=== PATIENT | female | born 1965 | race Hispanic/Latino ===

== ENCOUNTER 2020-11-09 16:53 | Emergency (ER) | payer OTHER, SELFPAY ==
[2020-11-09] VITALS (11 sets, daily range): BP systolic 114–148; BP diastolic 69–74; PULSE 68–93; RESP 13–19; TEMP 37.1; O2SAT 99–100
--- NOTE | ~2020-11-09 | XR_ITS ---
EXAMINATION: XR chest 1V portable INDICATION: Fever, COVID 19 positive TECHNIQUE: Portable AP chest at 1842 hours COMPARISON: None available FINDINGS: Patchy bilateral airspace opacities are present. There is no pleural effusion or pneumothor ax. The cardiomediastinal silhouette is normal. The visualized osseous structures are unremarkable. IMPRESSION: 1. Patchy bilateral airspace opacities, likely pneumonia. Reviewed, dictated and finalized at location A.
--- NOTE | 2020-11-09 18:26 | PC.NURSE ---
Per lead electrical engineer, unable to get information from pt/triage pt at this time, waiting for player services representative currently in use by another EDP.
[2020-11-09 18:58] LABS: Hematocrit 39.7 % (37.0-47.0); Hemoglobin 13.2 g/dL (12.0-15.0); Immature Granulocyte Absolute 0.01 K/mm3 (0.00-0.031); Immature Granulocyte Percent A 0.3 % (0-0.5); Lymphocytes Absolute Auto 0.98 K/mm3 (0.9-3.2); Lymphocytes Percent Auto 29.3 % (18.3-44.2); Mean Corpuscular HGB Conc 33.2 g/dl (32-36); Mean Corpuscular Hemoglobin 31.6 pg (26-34); Monocytes Absolute Auto 0.2 K/mm3 (0.1-0.6); Monocytes Percent Auto 4.5 % (2.6-8.5); Neutrophils Absolute Auto 2.2 K/mm3 (1.3-6.7); Neutrophils Percent Auto 65.9 % (45.5-73.1); Platelet Count Result 151 k/mm3 (150-375); Red Blood Count 4.18 M/mm3 (4.2-5.4); Red Cell Distribution Width 12.1 % (11.5-14.5); White Blood Count 3.4 K/mm3 (4.5-10.0)
[2020-11-09 19:03] LABS: Add Urine Microscopic? YES; Appearance Urine Cloudy (Clear); Bacteria Urine Trace /hpf; Bilirubin Urine Negative (Negative); Blood Urine Negative (Negative); Color Urine Amber (Yellow); Glucose Urine UA Negative (Negative); Ketones Urine 1+ mg/dL (Negative); Leukocyte Esterase Ur Trace LEU/UL (Negative); Mucus Urine Heavy /lpf; Nitrate Urine Negative (Negative); Protein Urine 2+ mg/dL (Negative); Squamous Epithelial Cell Urine Many /hpf (Few)
[2020-11-09 19:10] LABS: D Dimer 0.44 ug/mL (<0.48)
[2020-11-09 19:12] LABS: Anion Gap 6 mmol/L (8-16); Blood Urea Nitrogen 17 mg/dL (7-17); Calcium 8.4 mg/dL (8.4-10.2); Carbon Dioxide 28 mmol/L (22-30); Chloride 105 mmol/L (98-107); Estimated CRCL calculation 78 ml/min; Estimated Glomerular Filt Rate > 60; Glucose 122 mg/dL (65-105); Lactate Dehydrogenase 533 U/L (313-618); Potassium 4.2 mmol/L (3.4-5.0); Sodium 139 mmol/L (137-145)
--- NOTE | 2020-11-09 19:55 | ED.FEVER ---
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 ([employer]) Mode of arrival: ambulatory Limitations: no limitations History of Present Illness HPI Narrative: 54-year-old female Complains of a fever, body aches, lower abdominal discomfort, and a slight cough for 3 days She reports that last week on Monday she tested positive for Cov[facility] at a [facility], the test was not ordered by a doctor, and she has not had any follow-up It is not completely clear, and she cannot fully explain, why she got tested 2 days before she felt sick She does report that her breathing is fine she has zero dyspnea at rest and only very minimal issues when she is exerting herself, and her O2 saturation here is 100 Review of Systems Review of Systems: All systems reviewed & are unremarkable except as noted in HPI and below Constitutional: Constitutional: Reports no additional constitutional complaints, Denies chills, Denies fever(s) and Denies headache(s) Eyes: Eyes: Reports no additional eye complaints and Denies change in vision ENT: Denies headache(s) and Denies sore throat Cardiovascular: Cardiovascular: Denies chest pain and Denies dyspnea Respiratory: Respiratory: Denies cough and Denies dyspnea Gastrointestinal: Gastrointestinal: Denies abdominal pain, Denies diarrhea and Denies vomiting Genitourinary: Genitourinary: Denies urinary frequency and Denies dysuria Musculoskeletal: Musculoskeletal: Denies deformity, Denies arthralgias, Denies joint swelling and Denies numbness Integumentary/Breasts: Skin/Breast: Denies rash and Denies wounds Neurologic: Denies headache(s), Denies focal weakness and Denies numbness Psychiatric: Psychiatric: Reports no additional psychiatric complaints Endocrine: Endocrine: Reports no additional endocrine complaints Hematologic/Lymphatic: Hematologic/Lymphatic: Reports no additional hematologic/lymphatic complaints Allergic/Immunologic: Allergic/Immunologic: Reports no additional allergic/immunologic complaints [facility] Social History Social History Gender identity (if verbalized by the patient): Female Exam Const: General: cooperative, no acute distress and alert Orientation/consciousness: patient oriented x3 (alert) HENMT: Head: normal to inspection, normocephalic and atraumatic Ears: external ears normal General nose exam: no epistaxis Eyes: Conjunctivae: conjunctivae normal EOM: EOMs intact bilaterally Neck: Neck: normal visual inspection, supple and no JVD Resp: Effort & Inspection: normal respiratory effort and not labored Auscultation: clear to auscultation bilaterally, no rales, no rhonchi, no wheezes and other (BS =) Cardio: Rate: regular rate Rhythm: regular rhythm Heart sounds: no murmurs GI: GI Palp: Yes Soft to palpation and No Tenderness to palpation present (GI) Skin: General skin exam: normal color and no rashes or lesions noted Neuro: General: patient oriented x3 (alert) and moves all extremities Speech: normal speech Extrem: General: normal to inspection Course Vital Signs Vital signs: Vital Signs Temperature 37.1 C 11/09/20 18:36 Pulse Rate 93 11/09/20 18:36 Respiratory Rate 17 11/09/20 18:36 Blood Pressure 118/70 11/09/20 18:36 Pulse Oximetry 100 11/09/20 18:36 Temperature 37.1 C 11/09/20 18:36 Pulse Rate 81 11/09/20 18:49 Respiratory Rate 14 11/09/20 18:49 Blood Pressure 119/72 11/09/20 18:49 Pulse Oximetry 100 11/09/20 18:49 MDM - Fever Lab Data Result diagrams: 11/09/20 18:49 11/09/20 18:49 Labs: Lab Results 11/09/20 11/09/20 11/09/20 Range/Units 18:49 18:49 18:49 WBC 3.4 L (4.5-10.0) K/mm3 RBC 4.18 L (4.2-5.4) M/mm3 Hgb 13.2 (12.0-15.0) g/dL Hct 39.7 (37.0-47.0) % MCV 95.0 (80-100) fl MCH 31.6 (26-34) pg MCHC 33.2 (32-36) g/dl RDW 12.1
--- NOTE | 2020-11-09 21:58 | PC.NURSE ---
RT at bedside for MDI instruct.
== END 2020-11-09 22:00 | disposition home or self-care (01) ==
PROVIDERS: Emergency Provider Emergency Medicine
DX: U07.1 COVID-19 (principal); J12.82 Pneumonia due to coronavirus disease 2019
CPT/HCPCS: 36415; 71045; 80048; 81001; 82728; 83615; 85025; 85380; 99283

== ENCOUNTER 2020-11-13 09:32 | Emergency (ER) | payer OTHER, SELFPAY ==
[2020-11-13] VITALS (7 sets, daily range): BP systolic 112–140; BP diastolic 61–78; PULSE 61–80; RESP 14–22; TEMP 36.3–36.8; O2SAT 96–100
--- NOTE | ~2020-11-13 | XR_ITS ---
EXAMINATION: XR chest 1V portable DATE: 11/13/2020 11:27 INDICATION: Shortness of breath. Fever. Cough. Chest pain. TECHNIQUE: A single frontal view of the chest was obtained. COMPARISON: Chest single view 11/09/2020 FINDINGS: There are airspace opacities at left lung base. There are mild airspace opacities in right mid and lower lung zones and left lower lung zone No pleural effusion or pneumothorax. The heart size is normal. IMPRESSION: 1. Worsened airspace opacities in the mid and lower lung zones, consistent with COVID-19 pneumonia. Reviewed, dictated and finalized at location A.
--- NOTE | ~2020-11-13 | CT_ITS ---
EXAMINATION: CTA chest PE protocol DATE: 11/13/2020 13:49 INDICATION: COVID positive presenting with shortness of breath TECHNIQUE: Computed tomography (CT) pulmonary angiogram of the chest was performed with 100 mL Omnipa que-350 intravenous contrast. Additional 3D reconstructions utilizing coronal maximum intensity proje ction (MIP) were performed. Automated exposure control and iterative reconstruction technique were em ployed. The dose-length product was 479.17 mGy-cm. COMPARISON: None FINDINGS: Good contrast opacification of the pulmonary arteries. There is mild streak artifact from dense contr ast in the superior vena cava and right atrium. Mild scattered respiratory motion artifact. Overall t his only minimally decreases sensitivity in some of the smaller subsegmental pulmonary arteries. No p ulmonary embolism. There are patchy groundglass opacities and consolidation with peripheral and lower lung predominance most suggestive of chronic 19 pneumonia. No pleural effusion or pneumothorax. Hear t size is normal. No pericardial effusion. Thoracic aorta is normal in caliber with no dissection. 4 cm left thyroid mass with coarse peripheral calcifications. Likely reactive mild right hilar lymphade nopathy. A few small calcified gallstones in the dependent fundus of the otherwise normal-appearing g allbladder. Chronic appearing mild anterior wedging at T11 and T12. IMPRESSION: 1. No pulmonary embolism. 2. Patchy bilateral peripheral and lower lung predominant lung disease with appearance most suspiciou s for computed 19 pneumonia. 3. Mild likely reactive right hilar lymphadenopathy. 4. 4 cm left thyroid mass. Consider thyroid ultrasound for risk stratification. Reviewed, dictated and finalized at location B. IMPRESSION: 1. No pulmonary embolism. 2. Patchy bilateral peripheral and lower lung predominant lung disease with james earance most suspicious for computed 19 pneumonia. 3. Mild likely reactive right hilar lymphadenopathy. 4. 4 cm left thyroid mass. Consider thyroid ultrasound for risk stratification.
--- NOTE | 2020-11-13 10:06 | PC.NURSE ---
Pt daughter will be waiting outside if nurse needs any additional information. [place] [phone]
[2020-11-13] MEDS: FAMOTIDINE 20 MG/2 ML VIAL IV PUSH (12:14)
[2020-11-13] MEDS: SODIUM CHLORIDE 0.9% IV 1,000 ML 999 ML IV CONT ×2 (12:14→14:45)
--- NOTE | 2020-11-13 12:26 | ED.GENADULT ---
HPI - General Adult General Chief complaint: Shortness of Breath/Dyspnea <Willis Gresham PA-C - Last Filed: 11/13/20 14:47> Stated complaint: covid +, symptoms getting worse <Willis Gresham PA-C - Last Filed: 11/13/20 14:47> Time Seen by Provider: 11/13/20 10:29 <Willis Gresham PA-C - Last Filed: 11/13/20 14:47> Source: patient and old records reviewed <Willis Gresham PA-C - Last Filed: 11/13/20 14:47> Mode of arrival: ambulatory <Willis Gresham PA-C - Last Filed: 11/13/20 14:47> Limitations: no limitations <Willis Gresham PA-C - Last Filed: 11/13/20 14:47> History of Present Illness HPI narrative: Patient is a 54-year-old female who presents to emergency department with Covid x8 days with sick individuals at home as well. Patient denies any significant past medical history but notes that she has aching of the chest and felt dizzy and lightheaded this morning with nausea. Patient was seen a few days earlier in the emergency department evaluated and discharged home and has been taking Tylenol and NyQuil for her symptoms. Patient denies any tobacco abuse or other complaints and on arrival is in the room in no distress and does not appear uncomfortable patient does not have a primary care and is not set up follow-up <Willis Gresham PA-C - Last Filed: 11/13/20 14:47> Related Data Allergies/adverse reactions: Allergies Allergy/AdvReac Type Severity Reaction Status Date / Time No Known Allergies Allergy Verified 11/13/20 12:02 <Willis Gresham PA-C - Last Filed: 11/13/20 14:47> Review of Systems Review of Systems: All systems reviewed & are unremarkable except as noted in HPI and below <Willis Gresham PA-C - Last Filed: 11/13/20 14:47> [facility] Social History Social History: Social History (Updated 11/13/20 @ 12:27 by Willis Gresham PA-C) Smoking status: Never smoker Gender identity (if verbalized by the patient): Female <Willis Gresham PA-C - Last Filed: 11/13/20 14:47> Exam Narrative: Exam Narrative: GENERAL: Ill-appearing, well-nourished, and in no acute distress. HEAD: Normocephalic, atraumatic. EYES: PERRLA and EOMI. ENT: Nares clear, no rhinorrhea or epistaxis. Mucous membranes moist. NECK: Supple. No adenopathy or masses. CHEST: Clear to auscultation. No respiratory distress. Slight crackles in the lung engel HEART: Regular rate and rhythm. No murmur heard. Normal peripheral pulses. ABDOMEN: Soft, nontender, nondistended EXTREMITIES: Normal range of motion. No edema. SKIN: Warm, dry, no rash. NEURO: No focal deficits. Alert and oriented x3. PSYCH: Normal mood and affect. <ARI Graves Last Filed: 11/13/20 14:47> Course Course Emergency Course: Patient is in the room in no distress had improvement with medications to include hydration steroids and antibiotic will be sent home with supportive medication given resources for primary care follow-up patient was given all of her results through an [employer] consultant patient is aware of this and agrees with the plan patient feels comfortable to go home has remained hemodynamically stable with normal oxygenation and will be discharged home with family patient feels comfortable with this plan was given instructions on reasons to return <ARI Graves Last Filed: 11/13/20 14:47> Vital Signs Vital signs: Vital Signs Temperature 97.4 F L 11/13/20 09:50 Pulse Rate 80 11/13/20 09:50 Respiratory Rate 18 11/13/20 09:50 Blood Pressure 112/62 11/13/20 09:50 Pulse Oximetry 96 11/13/20 09:50 Temperature 98.3 F 11/13/20 15:39 Pulse Rate 62 11/13/20 15:39 Respiratory Rate 18 11/13/20 15:39 Blood Pressure 127/61 11/13/20 15:39 Pulse Oximetry 99 11/13/20 15:39 <ARI Graves Last Filed: 11/13/20 14:47> Vital Signs Temperature 97.4 F L 11/13/20 09:50 Pulse Rate 80 11/13/20 09:50 Respirato
[2020-11-13 12:32] LABS: Hematocrit 38.8 % (37.0-47.0); Hemoglobin 13.4 g/dL (12.0-15.0); Immature Granulocyte Absolute 0.02 K/mm3 (0.00-0.031); Immature Granulocyte Percent A 0.4 % (0-0.5); Lymphocytes Absolute Auto 0.57 K/mm3 (0.9-3.2); Lymphocytes Percent Auto 12.3 % (18.3-44.2); Mean Corpuscular HGB Conc 34.5 g/dl (32-36); Mean Corpuscular Hemoglobin 31.6 pg (26-34); Mean Corpuscular Volume 91.5 fl (80-100); Mean Platelet Volume 10.4 fl (7.4-10.4); Monocytes Absolute Auto 0.2 K/mm3 (0.1-0.6); Monocytes Percent Auto 3.9 % (2.6-8.5); Neutrophils Absolute Auto 3.9 K/mm3 (1.3-6.7); Neutrophils Percent Auto 83.4 % (45.5-73.1); Platelet Count Result 165 k/mm3 (150-375); Red Blood Count 4.24 M/mm3 (4.2-5.4); Red Cell Distribution Width 12.1 % (11.5-14.5); White Blood Count 4.6 K/mm3 (4.5-10.0)
[2020-11-13 12:37] LABS: Add Urine Microscopic? YES; Appearance Urine Cloudy (Clear); Bacteria Urine 2+ /hpf; Bilirubin Urine Negative (Negative); Blood Urine Negative (Negative); Color Urine Amber (Yellow); Glucose Urine UA Negative (Negative); Ketones Urine 1+ mg/dL (Negative); Leukocyte Esterase Ur 3+ LEU/UL (Negative); Mucus Urine Heavy /lpf; Nitrate Urine Negative (Negative); Protein Urine 2+ mg/dL (Negative); Squamous Epithelial Cell Urine Moderate /hpf (Few); WBC Urine >75 /hpf
[2020-11-13 12:44] LABS: Lactic Acid Reflex 0.9 mmol/L (0.7-2.1)
[2020-11-13 12:46] LABS: Alanine Aminotransferase 96 U/L (4-35); Alkaline Phosphatase 118 U/L (38-126); Anion Gap 6 mmol/L (8-16); Aspartate Amino Transferase 103 U/L (14-36); Bilirubin,Total 0.3 mg/dL (0.2-1.3); Blood Urea Nitrogen 16 mg/dL (7-17); CRP 5.4 mg/dL (<1.0); Calcium 8.6 mg/dL (8.4-10.2); Carbon Dioxide 27 mmol/L (22-30); Chloride 104 mmol/L (98-107); Estimated CRCL calculation 103 ml/min; Estimated Glomerular Filt Rate > 60; Glucose 143 mg/dL (65-105); Lactate Dehydrogenase 742 U/L (313-618); Lipase 314 U/L (23-300); Potassium 3.8 mmol/L (3.4-5.0); Sodium 137 mmol/L (137-145)
[2020-11-13 12:49] LABS: D Dimer 0.55 ug/mL (<0.48)
[2020-11-13 12:55] LABS: Troponin I < 0.012 ng/mL (0.000-0.034)
[2020-11-13] MEDS: DEXAMETHASONE SOD PHOS INJ 4 MG/ML VIAL 10 MG IV PUSH (14:46)
== END 2020-11-13 17:36 | disposition home or self-care (01) ==
PROVIDERS: Emergency Medicine Emergency Medical Services; Emergency Provider General Practice
DX: U07.1 COVID-19 (principal); J12.82 Pneumonia due to coronavirus disease 2019; N39.0 Urinary tract infection, site not specified; E86.0 Dehydration; E07.9 Disorder of thyroid, unspecified
CPT/HCPCS: 36415; 71045; 71275; 80053; 81001; 83605; 83615; 83690; 84484; 85025; 85380; 86140; 87077; 87086; 87088; 87186; 96361; 96365; 96375; 99284; J0131; J0696; J1100; J7030; Q9967

== ENCOUNTER 2024-11-14 16:52 | Emergency (ER) | payer OTHER, SELFPAY ==
--- OUTSIDE RECORDS SUMMARY | 2024-11-14 16:54 | XMS_ITS | Encounter Summary ---
Author Organization [facility] Address [address] [place] [id number] Care Team Providers Care Cosmetics Supervisor Name Role Phone Mora Arellano MD Primary Care Provider [phone] Encounter Details Date Type Department Care Team (Latest Contact Info) Description 11/14/2024 Travel Social History Tobacco Use Types Packs/Day Years Used Date Smoking Tobacco: Never Smokeless Tobacco: Never Comments Unknown Sex and Gender Information Value Date Recorded Sex Assigned at Female 11/11/2024 3:42 PM CDT Legal Sex Female 5:40 PM CDT Gender Identity Female 11/14/2024 2:59 PM CDT Sexual Orientation Straight 11/14/2024 2: 59 PM CDT documented as of this encounter Plan of Treatment Not on file documented as of this encounter Visit Diagnoses Not on filedocumented in this encounter Care Teams Cosmetics Supervisor Relationship Specialty [place] [address] [place] [address] PCP - General INTERNAL MEDICINE 11/11/24 documented as of this encounter
--- OUTSIDE RECORDS SUMMARY | 2024-11-14 16:54 | XMS_ITS | Encounter Summary ---
Author Organization [facility] Address [address] [place] [id number] Care Team Providers Care Lounge Car Attendant Name Role Phone Mora Arellano MD Primary Care Provider + [phone] Reason for Visit * Reason Comments Fracture Fracture Distal Righ t Radius, ED F/U Encounter Details Date Type Department Care Team (Late st Contact Info) Description 11/14/2024 3:00 PM CDT Office Visit [facility] [address] [place] [address] [place] [address] [place] [address] Fracture (Fracture Distal Right Radius, ED F/U) Social History Tobacco Use Types Packs/Day Years Used Date Smoking Tobacco: Never Smokeless Tobacco: Never Tobacco Cessation:Counseling Given: No Comments Unknown Sex and Gender Information Value Date Recorded Sex Assigned at Female 11/11/2024 3:42 PM CDT Legal Sex Female 5:40 PM CDT Gender Identity Female 11/14/2024 2:59 PM CDT Sexual Orientation Straight 11/14/2024 2: 59 PM CDT documented as of this encounter Last Filed Vital Signs Vital Sign Reading Time Taken Comments Blood Pressure 135/78 11/14/2024 2:59 PM CDT Pulse 74 11/14/2024 2:59 PM CDT Temperature 36.7 C (98 F) 11/14/2024 2:59 PM CDT Respiratory Rate - - Oxygen Saturation 100% 11/14/2024 2:59 PM CDT Inhaled Oxygen Concentration - - Weight 81.1 kg (178 lb 12.8 oz) 11/14/2024 2:59 PM CDT Height 162.6 cm (5' 4 ) 11/14/2024 2:59 PM CDT Body Mass Index 30.69 11/14/2024 2:59 PM CDT documented in this encounter Plan of Treatment Not on file documented as of this encounter Visit Diagnoses Not on filedocumented in this encounter Care Teams Lounge Car Attendant Relationship Specialty Start [place] [address] [place] [address] PCP - General INTERNAL MEDICINE 11/11/24 documented as of this encounter
--- OUTSIDE RECORDS SUMMARY | 2024-11-14 16:54 | XMS_ITS | Clinical Summary ---
Author Organization [facility] Address [address] [place] [address] Care Team Providers Care Rivet Flunky Name Role Phone Mora Arellano MD Primary Care Provider + [phone] Allergies No known active allergies Medications ibuprofen (MOTRIN) 600 MG tablet Take 1 tablet (600 mg total) by mouth 3 (three) times daily. 5 Active HYDROcodone-demetrius taminophen (NORCO) 5-325 MG tabletIndicatio ns:Acute Pain < 3 Day Supply Take 1 tablet by mouth every 6 (six) hours as needed for Pain. Indications : Acute Pain < 3 Day Supply 12 tablet 5 11/15/19 25 Discontinu ed(Therapy completed) Encounters Date Type Department Care Team Description 11/14/2024 3:00 PM CDT [facility] [id number] [place] [address] Basilio Chavez DO Fracture (Fracture Distal Right Radius, ED F/U) 11/14/2024 Travel 11/12/2024 Telephone [facility] Orthopedic Surgery [facility] [address] [address] Basilio Chavez DO Error 11/11/2024 3:40 PM CDT - 11/11/2024 7:00 PM CDT Emergency [facility] Emergency Room [address] [place] [address] Brandon Givens MD Fall Discharge Disposition: Home or Self Care (Routine Discharge) 11/11/2024 Travel from Last 3 Months Social History Tobacco Use Types Packs/Day Years Used Date Smoking Tobacco: Never Smokeless Tobacco: Never Tobacco Cessation:Counseling Given: No Comments Unknown Sex and Gender Information Value Date Recorded Sex Assigned at Female 11/11/2024 3:42 PM CDT Legal Sex Female 5:40 PM CDT Gender Identity Female 11/14/2024 2:59 PM CDT Sexual Orientation Straight 11/14/2024 2: 59 PM CDT Last Filed Vital Signs Vital Sign Reading Time Taken Comments Blood Pressure 135/78 11/14/2024 2:59 PM CDT Pulse 74 11/14/2024 2:59 PM CDT Temperature 36.7 C (98 F) 11/14/2024 2:59 PM CDT Respiratory Rate 16 11/11/2024 6:15 PM CDT Oxygen Saturation 100% 11/14/2024 2:59 PM CDT Inhaled Oxygen Concentration - - Weight 81.1 kg (178 lb 12.8 oz) 11/14/2024 2:59 PM CDT Height 162.6 cm (5' 4 ) 11/14/2024 2:59 PM CDT Body Mass Index 30.69 11/14/2024 2:59 PM CDT Plan of Treatment Health Maintenance Due Date Last Done Comments Cervical Cancer Screening Pa p Smear (Age 30 to 64) Every 3 Years 1965 Colorectal Cancer Screening Colonoscopy (10 Years) 1965 Annual Physical 11/19/1966 Hepatitis C 11/19/1981 DTaP, Tdap and Td Vaccines ( 1 - Tdap) 11/19/1982 Cervical Cancer Screening Pa p with HPV Testing (Age 30 to 64) Every 5 Years 11/19/1993 Cervical Cancer Screening with HPV 11/19/1993 Zoster Vaccines (1 of 2) 11/19/2013 Mammogram Screening 07/28/2018 07/28/2016 COVID-19 Vaccine ( - 2023-2 5 season) 2024 PHQ-2 (Physician [place]) 08/07/2024 RSV Immunization or 60+ Years (1 - 1-dose 75+ series) 11/19/2038 Meningococcal B Vaccine Aged Out No l onger eligible based on patient's age to complete this topic Meningococcal Vaccine Aged Out No lulú anuja eligible based on patient's age to complete this topic Pneumococcal Vaccine: Pediat rics (0 to 5 Years) and At-Risk Patients (6 to 64 Years) Aged Out No longer eligi ble based on patient's age to complete this topic RSV Immunizations Under 20 Months Aged Out No longer eligible based on patient's age to complete this topic Procedures Procedure Name Priority Date/Time Associated Diagnosis Comments LACERATION REPAIR Routine 11/11/2024 6:5 5 PM CDT XR WRIST RT MIN 3V STAT 11/11/2024 4: 48 PM CDT XR HAND RT 3V STAT 11/11/2024 4:[address] CERV SPINE WO CON STAT 11/11/2024 4:[address] HEAD WO CON STAT 11/11/2024 4:37 PM CDT MG SCREENING W ARUNA SONIA DIGI Routine 07/28/2016 11:23 AM WOODS SUPERINTENDENT from Last 3 Months or Most Recently Relevant to Health Maintenance Results * Lac Repair (11/11/2024 6:55 PM CDT) Brandon Son MD - 11/11/2024 6:55 PM CDT Brandon Givens MD 11/11/2024 6:56 PM Lac Repair Date/Time: 11/11/2024 6:55 PM Performed by: Brandon Givens MD Authorized by: Brandon Givens MD Consent: Consent obtained: Verbal Consent given by: Patient Risks, benefits, and alternatives were discussed: yes Risks discussed: Infection, need for additional repair and poor wound healing Alternatives discussed: No treatment [place] protocol: Procedure explained and questions answered to patient or proxy's satisfaction: yes Relevant documents present and verified: yes Patient identity confirmed: Verbally with patient and arm band Anesthesia: Anesthesia method: None Laceration details: Location: Face Face location: Forehead Length (cm): 1.5 Depth (mm): 1 Exploration: Limited defect created (wound extended): no Hemostasis achieved with: Direct pressure Imaging outcome: foreign body not noted Wound exploration: wound explored through full range of motion and entire depth of wound visualized Contaminated: no Treatment: Area cleansed with: Shur-Cleaman Amount of cleaning: Standard Debridement: None Undermining: None Scar revision: no Skin repair: Repair method: Steri-Strips and tissue adhesive Number of Steri-Strips: 3 Approximation: Approximation: Close Repair type: Repair type: Simple Post-procedure details: Dressing: Open (no dressing) Procedure completion: Tolerated us Brandon Givens MD PROCEDURE/MINOR SURGICAL ORDERAB LES Final Result * XR WRIST RT MIN 3V (11/11/2024 4:48 PM CDT) Anatomical Region Laterality Modality Wrist Radiographic Yue ging 11/11/2024 4:50 PM CDT Impressions 11/11/2024 4:52 PM CDT IMPRESSION: 1. Mildly comminuted and slightly impacted fracture of the distal right radius with intra-articular extension. 2. Moderate overlying soft tissue swelling. No other gross fracture. Ordered By: BRANDON GIVENS Interpreted By: Teri Lincoln, 11/11/2024 4:50 PM Narrative 11/11/2024 4:52 PM [address]T [address] [place] [address] IMAGING STUDIES: XR WRIST RT MIN 3V DATE: 11/11/2024 4:23 PM COMPARISON: No comparisons. CLINICAL HISTORY: fall . FINDINGS: Mildly comminuted fracture of the distal right radius with intra-articular extension. Mild distraction. No distinct angulation. . No gross abnormality of the navicular bone. Mild degenerative change of the radiocarpal articulation.. Moderate overlying soft tissue swelling.No radiopaque foreign bodies. If pain persists over the navicular bone, follow-up in 3-5 days with plain films or MRI may be of benefit. Procedure Note Theo Lincoln MD - 11/11/[address] [place] [id number] IMAGING STUDIES: XR WRIST RT MIN 3V DATE: 11/11/2024 4:23 PM COMPARISON: No comparisons. CLINICAL HISTORY: fall . FINDINGS: Mildly comminuted fracture of the distal right radius with intra- articularextension. Mild distraction. No distinct angulation. . No gross abnormality of the navicular bone. Mild degenerative change of the radiocarpal articulation.. Moderateoverlying soft tissue swelling.No radiopaque foreign bodies. If pain persists over the navicular bone, follow-up in 3-5 days with plainfilms or MRI may be of benefit. IMPRESSION: 1. Mildly comminuted and slightly impacted fracture of the distal rightradius with intra-articular extension. 2. Moderate overlying soft tissue swelling. No other gross fracture. Ordered By: BRANDON GIVENS Interpreted By: Teri Lincoln, 11/11/2024 4:50 PM Brandon Givens MD GENERAL IMAGING Final Result * XR HAND RT 3V (11/11/2024 4:48 PM CDT) Anatomical Region Laterality Modality Hand Radiographic Yue ging 11/11/2024 4:51 PM CDT Impressions 11/11/2024 4:53 PM CDT IMPRESSION: Acute appearing fracture right distal radius with probable intra-articular extension. Ordered By: BRANDON GIVENS Interpreted By: Tad Calderon MD, 11/11/2024 4:51 PM Narrative 11/11/2024 4:53 PM CDT [facility] [address] [place] [address] Examination: XR HAND RT 3V Exam time: 11/11/2024 4:23 PM Clinical history: Trauma. Fall. Comparison: No prior exam Technique: PA, oblique, and lateral views right hand Findings: There is an acute appearing transverse fracture with minimal displacement involving the right distal radius. There appears to be a vertical component which most likely extends intra-articular to the radiocarpal joint. Right distal ulna appears unremarkable. Carpal bone relationships and appearances appear normal. There is no evidence of fracture or focal bone abnormality throughout the metacarpals or phalanges. No evidence of subluxation or dislocation. Procedure Note Tad Calderon MD - 11/11/2024 [facility] [address] [place] [address] Examination: XR HAND RT 3V Exam time: 11/11/2024 4:23 PM Clinical history: Trauma. Fall. Comparison: No prior exam Technique: PA, oblique, and lateral views right hand Findings: There is an acute appearing transverse fracture with minimaldisplacement involving the right distal radius. There appears to be avertical component which most likely extends intra-articular to theradiocarpal joint. Right distal ulna appears unremarkable. Carpal bone relationships and appearances appear normal. There is no evidence of fracture or focal bone abnormality throughout themetacarpals or phalanges. No evidence of subluxation or dislocation. IMPRESSION: Acute appearing fracture right distal radius with probable intra- articularextension. Ordered By: BRANDON GIVENS Interpreted By: Tad Calderon MD, 11/11/2024 4:51 PM us Brandon Givens MD GENERAL IMAGING Final Result * CT HEAD WO CON (11/11/2024 4:37 PM CDT) Anatomical Region Laterality Modality Head Computed Tomogra phy 11/11/2024 4:46 PM CDT Impressions 11/11/2024 4:48 PM CDT IMPRESSION: 1. No CT evidence of an acute intracranial abnormality. 2. No cervical spine fracture. 3. Left thyroid nodule. Recommend nonemergent thyroid ultrasound. Ordered By: BRANDON GIVENS Interpreted By: Gerardo Holly MD, 11/11/2024 4:46 PM Narrative 11/11/2024 4:48 PM CDT [facility] [address] [place] [address] Examination: CT HEAD WO CON, CT CERV SPINE WO CON, 11/11/2024 4:23 PM. Technique: Computed tomographic images of the head and cervical spine were obtained without intravenous contrast. Additional coronal and sagittal reformatted images were generated at a separate workstation. A dose lowering technique was used for this procedure, which may include, but is not limited to, dose reduction technique, automated exposure control, the use of iterative reconstruction, and ALARA (As Low As Reasonably Achievable) / Image Gently techniques. Clinical history: fall Comparison: CT head 09/25/2013 Findings: CT head: There is no acute intracranial hemorrhage. There is no extra-axial fluid collection. Preserved villegas-white matter differentiation. The ventricles are normal in size. The basal cisterns appear normal. The orbital contents appear normal. Paranasal sinuses and mastoid air cells are well aerated. CT cervical spine: The cervical vertebral bodies and facets are well aligned. The cervical vertebral body heights are preserved. There is no acute fracture nor destructive process of the visualized osseous structures. There is a 3.7 cm left thyroid nodule. Procedure Note Gerardo Holly MD - 11/11/2024 [facility] [address] [place] [address] Examination: CT HEAD WO CON, CT CERV SPINE WO CON, 11/11/2024 4:23 PM. Technique: Computed tomographic images of the head and cervical spine wereobtained without intravenous contrast. Additional coronal and sagittalreformatted images were generated at a separate workstation. A doselowering technique was used for this procedure, which may include, but isnot limited to, dose reduction technique, automated exposure control, theuse of iterative reconstruction, and ALARA (As Low As ReasonablyAchievable) / Image Gently techniques. Clinical history: fall Comparison: CT head 09/25/2013 Findings: CT head: There is no acute intracranial hemorrhage. There is noextra-axial fluid collection. Preserved villegas-white matter differentiation.The ventricles are normal in size. The basal cisterns appear normal. Theorbital contents appear normal. Paranasal sinuses and mastoid air cellsare well aerated. CT cervical spine: The cervical vertebral bodies and facets are wellaligned. The cervical vertebral body heights are preserved. There is noacute fracture nor destructive process of the visualized osseousstructures. There is a 3.7 cm left thyroid nodule. IMPRESSION: 1. No CT evidence of an acute intracranial abnormality. 2. No cervical spine fracture. 3. Left thyroid nodule. Recommend nonemergent thyroid ultrasound. Ordered By: BRANDON GIVENS Interpreted By: Gerardo Holly MD, 11/11/2024 4:46 PM us Brandon Givens MD CT Final Result * CT CERV SPINE WO CON (11/11/2024 4:37 PM CDT) Anatomical Region Laterality Modality Spine Computed Tomogra phy 11/11/2024 4:46 PM CDT Impressions 11/11/2024 4:48 PM CDT IMPRESSION: 1. No CT evidence of an acute intracranial abnormality. 2. No cervical spine fracture. 3. Left thyroid nodule. Recommend nonemergent thyroid ultrasound. Ordered By: BRANDON GIVENS Interpreted By: Gerardo Holly MD, 11/11/2024 4:46 PM Narrative 11/11/2024 4:48 PM CDT [facility] [address] [facility] [place] [address] Examination: CT HEAD WO CON, CT CERV SPINE WO CON, 11/11/2024 4:23 PM. Technique: Computed tomographic images of the head and cervical spine were obtained without intravenous contrast. Additional coronal and sagittal reformatted images were generated at a separate workstation. A dose lowering technique was used for this procedure, which may include, but is not limited to, dose reduction technique, automated exposure control, the use of iterative reconstruction, and ALARA (As Low As Reasonably Achievable) / Image Gently techniques. Clinical history: fall Comparison: CT head 09/25/2013 Findings: CT head: There is no acute intracranial hemorrhage. There is no extra-axial fluid collection. Preserved villegas-white matter differentiation. The ventricles are normal in size. The basal cisterns appear normal. The orbital contents appear normal. Paranasal sinuses and mastoid air cells are well aerated. CT cervical spine: The cervical vertebral bodies and facets are well aligned. The cervical vertebral body heights are preserved. There is no acute fracture nor destructive process of the visualized osseous structures. There is a 3.7 cm left thyroid nodule. Procedure Note Gerardo Holly MD - 11/11/2024 [facility] [address] [place] [address] Examination: CT HEAD WO CON, CT CERV SPINE WO CON, 11/11/2024 4:23 PM. Technique: Computed tomographic images of the head and cervical spine wereobtained without intravenous contrast. Additional coronal and sagittalreformatted images were generated at a separate workstation. A doselowering technique was used for this procedure, which may include, but isnot limited to, dose reduction technique, automated exposure control, theuse of iterative reconstruction, and ALARA (As Low As ReasonablyAchievable) / Image Gently techniques. Clinical history: fall Comparison: CT head 09/25/2013 Findings: CT head: There is no acute intracranial hemorrhage. There is noextra-axial fluid collection. Preserved villegas-white matter differentiation.The ventricles are normal in size. The basal cisterns appear normal. Theorbital contents appear normal. Paranasal sinuses and mastoid air cellsare well aerated. CT cervical spine: The cervical vertebral bodies and facets are wellaligned. The cervical vertebral body heights are preserved. There is noacute fracture nor destructive process of the visualized osseousstructures. There is a 3.7 cm left thyroid nodule. IMPRESSION: 1. No CT evidence of an acute intracranial abnormality. 2. No cervical spine fracture. 3. Left thyroid nodule. Recommend nonemergent thyroid ultrasound. Ordered By: BRANDON GIVENS Interpreted By: Gerardo Holly MD, 11/11/2024 4:46 PM us Brandon Givens MD CT Final Result * MG SCREENING W ARUNA SONIA DIGI (07/28/2016 11:23 AM WOODS SUPERINTENDENT) Anatomical Region Laterality Modality Breast Bilateral Mammography 07/28/2016 11:2 3 AM WOODS SUPERINTENDENT 07/28/2016 11:23 AM WOODS SUPERINTENDENT Narrative 07/28/2016 11:29 AM WOODS SUPERINTENDENT ROBYN CHARLTON ADMIT/SERVICE DATE: 07/28/16 ACCT: [id number] DISCHARGE DATE: : 1965 SEX: F ORD SITE: [facility] PT TYPE: REG CLI ORDERING MD: LIZ ORR MD STUDY DATE REPORT # ORDER # EXT ORDER ID 07/28/16 [id number] PROC CODE: [id number] PROCEDURE DESCRIPTION: MG SCREEN BREAST TOMOSYNTH BI IMAGING STUDIES: MG SCREEN BREAST TOMOSYNTH BI DATE: 07/28/2016 10:24 AM INDICATION: SCREENING . COMPARISON: NO COMPARISONS.. FINDINGS: 1. BILATERAL CC AND MLO VIEWS, DIGITAL WITH CAD. 2-D WITH 3-D TOMOSYNTHESIS, 2. MODERATE AMOUNT OF BREAST PARENCHYMA PRESENT. 3. NO SUSPICIOUS MICROCALCIFICATION, WORRISOME MASS OR EVIDENCE OF ARCHITECTURAL DISTORTION. 4. . NO SKIN THICKENING OR NIPPLE RETRACTION. IMPRESSION: BI-RADS CATEGORY 1, NEGATIVE EXAMINATION. SA MAMMOGRAM CLASSIFICATION BI-RADS CATEGORY 0-NEED ADDITIONAL IMAGING EVALUATION BI-RADS CATEGORY 1-NEGATIVE BI-RADS CATEGORY 2-BENIGN FINDINGS BI-RADS CATEGORY 3-PROBABLY BENIGN FINDING-SHORT INTERVAL FOLLOWUP SUGGESTED BI-RADS CATEGORY 4-SUSPICIOUS ABNORMALITY-BIOPSY SHOULD BE CONSIDERED BI-RADS CATEGORY 5-HIGHLY SUGGESTIVE OF MALIGNANCY-APPROPRIATE ACTION SHOULD BE TAKEN A. A NEGATIVE REPORT SHOULD NOT DELAY A BIOPSY IF A DOMINANT OR CLINICALLY SUSPICIOUS MASS IS PRESENT. B. ADENOSIS AND DENSE BREASTS MAY OBSCURE AN UNDERLYING NEOPLASM. C. COMPUTER AIDED DETECTION UTILIZED IN THE INTERPRETATION OF THIS STUDY. ELECTRONICALLY SIGNED BY LISA ALANIZ MD Procedure Note Karissa Ritter MD - 05/31/2018 ROBYN CHARLTON ADMIT/SERVICE DATE:07/28/16 ACCT: [id number] DISCHARGE DATE: : 1965 SEX: F ORD SITE: [facility] PT TYPE: REG CLI ORDERING MD:LIZ ORR MD STUDY DATE REPORT # ORDER # EXT ORDER ID 07/28/16 [id number] PROC CODE: [id number] PROCEDURE DESCRIPTION: MG SCREEN BREAST TOMOSYNTH BI IMAGING STUDIES: MG SCREEN BREAST TOMOSYNTH BIDATE: 07/28/2016 10:24 AM INDICATION: SCREENING . COMPARISON: NO COMPARISONS.. FINDINGS: 1. BILATERAL CC AND MLO VIEWS, DIGITAL WITH CAD. 2-D WITH 3-DTOMOSYNTHESIS, 2. MODERATE AMOUNT OF BREAST PARENCHYMA PRESENT. 3. NO SUSPICIOUS MICROCALCIFICATION, WORRISOME MASS OR EVIDENCE OFARCHITECTURAL DISTORTION. 4. . NO SKIN THICKENING OR NIPPLE RETRACTION. IMPRESSION: BI-RADS CATEGORY 1, NEGATIVE EXAMINATION. MQSA MAMMOGRAM CLASSIFICATION BI-RADS CATEGORY 0-NEED ADDITIONAL IMAGING EVALUATION BI-RADS CATEGORY 1-NEGATIVE BI-RADS CATEGORY 2-BENIGN FINDINGS BI-RADS CATEGORY 3-PROBABLY BENIGN FINDING-SHORT INTERVAL FOLLOWUP SUGGESTED BI-RADS CATEGORY 4-SUSPICIOUS ABNORMALITY-BIOPSY SHOULD BE CONSIDERED BI-RADS CATEGORY 5-HIGHLY SUGGESTIVE OF MALIGNANCY-APPROPRIATE ACTION SHOULD BE TAKEN A. A NEGATIVE REPORT SHOULD NOT DELAY A BIOPSY IF A DOMINANT ORCLINICALLY SUSPICIOUS MASS IS PRESENT. B. ADENOSIS AND DENSE BREASTS MAY OBSCURE AN UNDERLYING NEOPLASM. C. COMPUTER AIDED DETECTION UTILIZED IN THE INTERPRETATION OF THISSTUDY. ELECTRONICALLY SIGNED BY LISA ALANIZ MD Liz Orr MD MAMMO Final Res ult from Last 3 Months or Most Recently Relevant to Health Maintenance Insurance Care Teams Rivet Flunky Relationship Specialty [place] [address] [place] [address] PCP - General INTERNAL MEDICINE 11/11/24
[2024-11-14 17:50] VITALS: BP 172/81; PULSE 94; RESP 16; TEMP 36.8; O2SAT 100
[2024-11-14 20:17] VITALS: BP 156/96; PULSE 86; RESP 18; O2SAT 100
--- OUTSIDE RECORDS SUMMARY | 2024-11-14 21:09 | XMS_ITS | Encounter Summary ---
Author Organization [facility] Address [address] [place] [address] Care Team Providers Care Carton Filling Machine Operator Name Role Phone Mora Arellano MD Primary Care Provider [phone] Encounter Details Date Type Department Care Team [...] on filedocumented in this encounter Care Teams Carton Filling Machine Operator Relationship Specialty [place] [address] [place] [address] PCP - General INTERNAL MEDICINE 11/11/24 documented as of this encounter
--- OUTSIDE RECORDS SUMMARY | 2024-11-14 21:09 | XMS_ITS | Clinical Summary ---
Author Organization [facility] Address [address] [place] [address] Care Team Providers Care Enterprise Mobility Architect Name Role Phone Mora Arellano MD Primary Care Provider + [phone] Allergies No known active allergies Medications ibuprofen [...] Description 11/14/2024 3:00 PM CDT [facility] [id number] [place] [address] Basilio Chavez DO Fracture (Fracture Distal Right Radius, ED F/U) 11/14/2024 Travel 11/12/2024 Telephone [facility] Orthopedic Surgery [facility] [address] [address] Basilio Chavez DO Error 11/11/2024 3:40 PM CDT - 11/11/2024 7:00 PM CDT Emergency [facility] Emergency Room [address] [place] [address] Brandon Givens MD Fall Discharge [...] - 2023-2 5 season) 2024 PHQ-2 (Physician [place]) 08/07/2024 RSV Immunization or 60+ Years (1 [...] ARUNA SONIA DIGI Routine 07/28/2016 11:23 AM COLLET DRILLER from Last 3 Months or Most Recently [...] poor wound healing Alternatives discussed: No treatment [place] protocol: Procedure explained and questions answered to [...] 4:50 PM Narrative 11/11/2024 4:52 PM CDT [address] [place] [address] IMAGING STUDIES: XR WRIST RT MIN 3V [...] Procedure Note Theo Lincoln MD - 11/11/[address] [place] [id number] IMAGING STUDIES: XR WRIST RT MIN 3V [...] 4:51 PM Narrative 11/11/2024 4:53 PM CDT [facility] [address] [place] [address] Examination: XR HAND RT 3V Exam time: [...] Procedure Note Tad Calderon MD - 11/11/2024 [facility] [address] [place] [address] Examination: XR HAND RT 3V Exam time: [...] 4:46 PM Narrative 11/11/2024 4:48 PM CDT [facility] [address] [place] [address] Examination: CT HEAD WO CON, CT CERV [...] Procedure Note Gerardo Holly MD - 11/11/2024 [facility] [address] [address] Examination: CT HEAD WO CON, CT CERV [...] 4:46 PM Narrative 11/11/2024 4:48 PM CDT [facility] [address] [address] [facility] [place] [address] Examination: CT HEAD WO CON, CT CERV [...] Procedure Note Gerardo Holly MD - 11/11/2024 [facility] [address] [place] [address] Examination: CT HEAD WO CON, CT CERV [...] W ARUNA SONIA DIGI (07/28/2016 11:23 AM COLLET DRILLER) Anatomical Region Laterality Modality Breast Bilateral Mammography 07/28/2016 11:2 3 AM COLLET DRILLER 07/28/2016 11:23 AM COLLET DRILLER Narrative 07/28/2016 11:29 AM COLLET DRILLER ROBYN CHARLTON ADMIT/SERVICE DATE: 07/28/16 ACCT: [id number] DISCHARGE DATE: : 1965 SEX: F ORD SITE: [facility] PT TYPE: REG CLI ORDERING MD: LIZ ORR MD STUDY DATE REPORT # ORDER # EXT ORDER ID 07/28/16 [id number] PROC CODE: TMSYNSCRBI PROCEDURE DESCRIPTION: MG SCREEN [...] - 05/31/2018 ROBYN CHARLTON ADMIT/SERVICE DATE:07/28/16 ACCT: [id number] DISCHARGE DATE: : 1965 SEX: F ORD SITE: [facility] PT TYPE: REG CLI ORDERING MD:LIZ ORR MD STUDY DATE REPORT # ORDER # EXT ORDER ID 07/28/16 [id number] PROC CODE: TMSYNSCRBI PROCEDURE DESCRIPTION: MG SCREEN [...] Relevant to Health Maintenance Insurance Care Teams Enterprise Mobility Architect Relationship Specialty [place] [address] [place] [address] PCP - General INTERNAL MEDICINE 11/11/24
--- OUTSIDE RECORDS SUMMARY | 2024-11-14 21:09 | XMS_ITS | Encounter Summary ---
Author Organization [facility] Address [address] [place] [id number] Care Team Providers Care Energy Director Name Role Phone Mora Arellano MD Primary Care Provider + [phone] Reason for Visit * Reason Comments Fracture Fracture Distal Righ t Radius, ED F/U Encounter Details Date Type Department Care Team (Late st Contact Info) Description 11/14/2024 3:00 PM CDT Office Visit [facility] [address] [place] [address] [place] [address] [place] [address] Fracture (Fracture Distal Right Radius, ED F/U) [...] on filedocumented in this encounter Care Teams Energy Director Relationship Specialty Start [place] [address] [place] [address] PCP - General INTERNAL MEDICINE 11/11/24 documented as of this encounter
--- NOTE | 2024-11-14 21:34 | ED.GENADULT ---
HPI - General Adult General Chief complaint: Unspecified Stated complaint: Needs ortho referral Time Seen by Provider: 11/14/24 20:55 History of Present Illness HPI narrative: 58-year-old Salvadorean-speaking female presents with her daughter at bedside for a referral to Orthopedics. Patient had a mechanical fall 4 days ago. She was walking up the stairs carrying a large object when she slipped and fell down 9 stairs. She did hit her head but did not lose consciousness. She was evaluated at [facility] where she had CT brain and cervical spine which were reportedly unremarkable. She had x-rays of her right wrist and right hand. Patient brought her x-ray reports with her today which read ?mildly comminuted slightly impacted fracture of the distal right radius intra-articular extension, moderate overlying soft tissue swelling, no other gross fracture. The patient was given referral to an orthopedist at [facility]. They went for there is follow-up today and were told they are not in network and were advised to come to and her standing ED to obtain a referral to Orthopedics. The patient has been taking Tylenol ibuprofen for pain, she has been choosing to refrain from narcotic pain medications. She does endorse intermittent tingling to her fingers. Related Data Allergies Allergy/AdvReac Type Severity Reaction Status Date / Time No Known Allergies Allergy Verified 11/13/20 12:02 Review of Systems Review of Systems: All systems reviewed & are unremarkable except as noted in HPI and below PMFSH Social History Social History Smoking status: Never smoker Gender identity (if verbalized by the patient): Female Exam Narrative: GENERAL: Well-appearing, well-nourished, and in no acute distress. HEAD: Normocephalic, atraumatic. EYES: EOMI. ENT: Nares clear, no rhinorrhea or epistaxis. Mucous membranes moist. NECK: Supple. CHEST: Clear to auscultation. No respiratory distress. HEART: Regular rate and rhythm. No murmur heard. Normal peripheral pulses. EXTREMITIES: Right upper extremity in volar splint. Once splint removed, there is edema and ecchymosis to the dorsum of the distal radius and ulna and carpal bones with limited range of motion of the wrist secondary to pain, patient is able to wiggle fingers, extend fingers and wrist and make an okay sign. Sensation is intact throughout all digits cap refill less than 2, radial pulses 2+. Compartments are soft. SKIN: Warm, dry, no rash. NEURO: No focal deficits. Alert and oriented x3 Course Vital Signs Vital signs: Vital Signs Temperature 98.3 F 11/14/24 17:50 Pulse Rate 94 11/14/24 17:50 Respiratory Rate 16 11/14/24 17:50 Blood Pressure 172/81 H 11/14/24 17:50 Pulse Oximetry 100 11/14/24 17:50 Oxygen Delivery Room Air 11/14/24 17:50 Temperature 98.9 F 11/14/24 22:31 Pulse Rate 84 11/14/24 22:31 Respiratory Rate 18 11/14/24 22:31 Blood Pressure 138/89 11/14/24 22:31 Pulse Oximetry 98 11/14/24 22:31 Oxygen Delivery Room Air 11/14/24 17:50 Medical Decision Making MDM Narrative Medical decision making narrative: 58-year-old female presents emergency department with daughter at bedside for an orthopedic referral. Patient was seen at [facility] 4 days ago after a mechanical fall than 9 flights of stairs. She had a negative CT head and cervical spine performed at that time. X-ray of her right wrist and hand showed a mildly comminuted and slightly impacted fracture of the distal right radius with intra-articular extension and moderate overlying soft tissue swelling. Patient followed up with [facility] today and was advised to come to our ED to obtain a referral to our Orthopedics given [facility] is not within the patient's network. The patient arrives with a short volar splint. Splint removed and reveals edema and ecchymosis to the distal radius/ulna and overlying the carpal bones. Compartments are soft. She is neurovascularly intact. New sugar tong splint applied and patient given referral for our orthopedist. I did advise that they obtain images on a disc and bring that along with x-ray read to follow-up appointment. Her pain is controlled with Tylenol/ibuprofen, she also has a script for [employer] for p.r.n.. Discussed strict ED return precautions. She and her daughter are agreeable with the plan verbalized understanding. Discharged in stable condition Vital Signs Vital Signs: Vital Signs Temperature 98.3 F 11/14/24 17:50 Pulse Rate 94 11/14/24 17:50 Respiratory Rate 16 11/14/24 17:50 Blood Pressure 172/81 H 11/14/24 17:50 Pulse Oximetry 100 11/14/24 17:50 Oxygen Delivery Room Air 11/14/24 17:50 Temperature 98.9 F 11/14/24 22:31 Pulse Rate 84 11/14/24 22:31 Respiratory Rate 18 11/14/24 22:31 Blood Pressure 138/89 11/14/24 22:31 Pulse Oximetry 98 11/14/24 22:31 Oxygen Delivery Room Air 11/14/24 17:50 Discharge Plan Discharge Clinical Impression: Distal radial fracture Patient Disposition: Home Condition: Stable Instructions: Antibiotic Form, Wrist Fracture in Adults (ED) Additional Instructions: Return to the emergency department if you develop numbness, significantly worsening pain, white fingers or other concerning symptoms. Follow-up with the orthopedist as directed. Patient Language: Salvadorean Prescriptions: No Action albuterol sulfate 90 mcg/actuation HFA aerosol inhaler 4 puff inhalation QID PRN (Reason: shortness of breath or wheezing) Qty: 8.5 0RF loratadine [Claritin] 10 mg tablet 10 mg PO DAILY PRN (Reason: allergy symptoms) Qty: 10 0RF famotidine [Pepcid] 20 mg tablet 20 mg PO BID Qty: 14 0RF ondansetron HCl [Zofran] 4 mg tablet 4 mg PO Q8H PRN (Reason: nausea and vomiting) Qty: 10 0RF albuterol sulfate 90 mcg/actuation HFA aerosol inhaler 3 puff inhalation QID PRN (Reason: shortness of breath or wheezing) Qty: 8.5 0RF cephalexin 500 mg tablet 500 mg PO Q8H 10 Days Qty: 30 0RF Follow-up/Referrals: Brayan Fuchs MD [Physician] - Phoenix Reyna MD [Physician] - UNKNOWN,DOCTOR [Primary Care Provider] -
[2024-11-14 22:31] VITALS: BP 138/89; PULSE 84; RESP 18; TEMP 37.2; O2SAT 98
== END 2024-11-14 22:32 | disposition home or self-care (01) ==
PROVIDERS: Emergency Provider Physician Assistant
DX: S52.571A Other intraarticular fracture of lower end of right radius, initial encounter for closed fracture (principal); W10.9XXA Fall (on) (from) unspecified stairs and steps, initial encounter
CPT/HCPCS: 29125; 99281